=== PATIENT | male | born 1945 | race African-American/Black ===

== ENCOUNTER 2019-03-21 13:39 | Emergency (ER) | payer OTHER ==
--- NOTE | 2019-03-21 14:02 | ER Document Report ---
ED Medical Screen (RME) - General Chief Complaint: Urinary Problem Stated Complaint: BLOOD IN URINE Time Seen by Provider: 03/21/19 14:00 Primary Care Provider: ELMA BARBOUR MD [Primary Care Provider] - Follow up as needed Mode of Arrival: Ambulatory Information source: Patient Notes: 73-year-old male presented to ED for complaint of blood in his urine. He states it is very bloody urine. He states he did have a little bit of shocking pain on the way down here. When asked how much blood is in the urine he said is a lot of blood. He is alert oriented respirations regular nonlabored speaking in full sentences. Patient does not have any abdominal tenderness at this time. He states twice before long years ago he is passed blood but does not remember why he does not remember ever having a kidney stone. Does not have any flank pain at this time. He says he is in no pain at this moment. States he is not on any blood thinners I have greeted and performed a rapid initial assessment of this patient. A comprehensive ED assessment and evaluation of the patient, analysis of test results and completion of medical decision making process will be conducted by an additional ED providers. Physical Exam - Vital signs Vitals: Temp Pulse Resp BP Pulse Ox 98.4 F 82 18 134/74 H 97 03/21/19 13:56 03/21/19 13:56 03/21/19 13:56 03/21/19 13:56 03/21/19 13:56 Course - Vital Signs Vital signs: Temp Pulse Resp BP Pulse Ox 98.4 F 82 18 134/74 H 97 03/21/19 13:56 03/21/19 13:56 03/21/19 13:56 03/21/19 13:56 03/21/19 13:56 Doctor's Discharge - Discharge Referrals: ELMA BARBOUR MD [Primary Care Provider] - Follow up as needed
--- NOTE | 2019-03-21 15:29 | RADIOLOGY REPORT (SQ) ---
EXAM DESCRIPTION: CT ABD/PELVIS NO ORAL OR IV COMPLETED DATE/TIME: 03/21/2019 2:52 pm REASON FOR STUDY: hematuria COMPARISON: None. TECHNIQUE: CT scan of the abdomen and pelvis performed without intravenous or oral contrast. Images reviewed with lung, soft tissue, and bone windows. Reconstructed coronal and sagittal MPR images revi ewed. All images stored on PACS. All CT scanners at this facility use dose modulation, iterative reconstruction, and/or weight based d osing when appropriate to reduce radiation dose to as low as reasonably achievable (ALARA). [facility]: Dose Right [facility]: CareDose [facility]: Dose Right [facility]: Teradose 4D [facility]: [employer] RADIATION DOSE: CT Rad equipment meets quality standard of care and radiation dose reduction techniq ues were employed. CTDIvol: 9.5 mGy. DLP: 536 mGy-cm. LIMITATIONS: None. FINDINGS: LOWER CHEST: No acute findings. NON-CONTRASTED LIVER, SPLEEN, ADRENALS: Evaluation is limited due to the absence of intravenous contr ast. The relative hypoattenuation hepatic parenchyma suggestive of hepatic steatosis. The spleen is normal in size. There is no abnormality of the adrenal glands. PANCREAS: No acute abnormality of the pancreas. GALLBLADDER: No abnormality that is apparent on CT. RIGHT KIDNEY AND URETER: Evaluation is limited due to the absence of intravenous contrast. There is an exophytic multi-lobular water attenuation structure with a central calcification that measures 4.8 x 3.9 cm. There is no hydronephrosis, nephrolithiasis, hydroureter or ureterolithiasis. LEFT KIDNEY AND URETER: Evaluation is limited due to the absence of intra venous contrast. There is a 1.7 cm water attenuation cyst in the upper pole of the kidney. There is no hydronephrosis, nephrol ithiasis, hydroureter or ureterolithiasis. AORTA AND RETROPERITONEUM: No aneurysm of the abdominal aorta. No retroperitoneal adenopathy, hemorr georgiana or mass. BOWEL AND PERITONEAL CAVITY: Colonic diverticulosis without diverticulitis. There is no bowel obstru ction, bowel wall thickening or, or pericolonic/perienteric inflammation. The "fátima" appearance of the mesentery with scattered nonenlarged lymph nodes and punctate calcifications is nonspecific. The re is no free intraperitoneal fluid. APPENDIX: Normal. PELVIS, BLADDER, AND ABDOMINAL WALL:The urinary bladder is distended. There are fiducial markers candelario und the enlarged prostate gland. There is a fat containing right inguinal hernia. The left inguinal canal is patulous. The soft tissue density in the presacral space is nonspecific and could be relat ed to radiotherapy. BONES: No acute findings. OTHER: No other finding. IMPRESSION: 1. Complex multilobular cystic structure with a central calcification that arises from t he upper pole of the right kidney. Correlation with a nonemergent ultrasound or contrast enhanced CT /MRI is recommended. 2. Colonic diverticulosis without diverticulitis. 3. Fiducial markers are around the enlarged prostate gland. 4. Other findings as detailed above. COMMENT: Quality ID # [id number]: Final reports with documentation of one or more dose reduction techniques (e.g., Automated exposure control, adjustment of the mA and/or kV according to patient size, use of iterative reconstruction technique) TECHNICAL DOCUMENTATION: JOB ID: [id number] [employer]- All Rights Reserved Reading location - IP/workstation name: [email or web address]
[2019-03-21 15:50] LABS: APPEARANCE,URINE CLEAR; BILIRUBIN,URINE NEGATIVE (NEGATIVE); COLOR,URINE YELLOW; GLUCOSE, URINE NEGATIVE (NEGATIVE); KETONES,URINE NEGATIVE (NEGATIVE); PROTEIN,URINE 30 mg/dL (NEGATIVE); URINE SPECIFIC GRAVITY 1.009; UROBILINOGEN,URINE NEGATIVE mg/dL (<2.0)
[2019-03-21 16:17] LABS: ABSOLUTE BASOPHILS # (AUTO) 0.1 10^3/uL (0.0-0.2); ABSOLUTE EOSINOPHILS # (AUTO) 0.2 10^3/uL (0.0-0.6); ABSOLUTE MONOCYTES (AUTO) 0.3 10^3/uL (0.1-1.4); ABSOLUTE NEUT (AUTO) 3.7 10^3/uL (1.7-8.2); BASOPHILS % (AUTO) 1.1 % (0-2); EOSINOPHILS % (AUTO) 3.8 % (0-6); HEMATOCRIT 34.4 % (37.9-51.0); HEMOGLOBIN 11.6 g/dL (13.5-17.0); LYMPHOCYTES % (AUTO) 19.4 % (13-45); MEAN CORPUSCULAR HEMOGLOBIN 30.5 pg (27.0-33.4); MEAN CORPUSCULAR HGB CONC 33.7 g/dL (32.0-36.0); MEAN CORPUSCULAR VOLUME 91 fl (80-97); PLATELET COUNT 267 10^3/uL (150-450); RED CELL DISTRIBUTION WIDTH 14.1 % (11.5-14.0); SEGMENTED NEUTROPHILS % (AUTO) 70.7 % (42-78); TOTAL CELLS COUNTED % (AUTO) 100 %; WHITE BLOOD COUNT 5.3 10^3/uL (4.0-10.5)
[2019-03-21 16:48] LABS: ALBUMIN 4.2 g/dL (3.5-5.0); ALKALINE PHOSPHATASE 73 U/L (38-126); ANION GAP 9 (5-19); ASPARTATE AMINO TRANSFERASE 30 U/L (17-59); BILIRUBIN,DIRECT 0.1 mg/dL (0.0-0.4); BILIRUBIN,TOTAL 0.5 mg/dL (0.2-1.3); BLOOD UREA NITROGEN 16 mg/dL (7-20); CALCIUM 9.8 mg/dL (8.4-10.2); CARBON DIOXIDE 25 mmol/L (22-30); CHLORIDE 108 mmol/L (98-107); GLUCOSE 95 mg/dL (75-110); POTASSIUM 4.4 mmol/L (3.6-5.0); TOTAL PROTEIN 8.4 g/dL (6.3-8.2)
--- NOTE | 2019-03-21 18:31 | ER Document Report ---
ED General - General Chief Complaint: Urinary Problem Stated Complaint: BLOOD IN URINE Time Seen by Provider: 03/21/19 14:00 Primary Care Provider: ELMA BARBOUR MD [DENNY ELMORE] - Follow up as needed Mode of Arrival: Ambulatory Information source: Patient - HPI Notes: Patient presents complaint of blood in his urine. He also states he has some c entral lower abdominal pain. No significant burning with urination however. This started today. No known trauma. He states he does have a history of prostate cancer that is being managed with radiation. He states he also has a history of kidney cancer and at this time they are considering possibly using a "freezing therapy" but no decisions have been made yet. He states he has not had any treatment for the kidney cancer at this point. He states he is being followed at the [facility] for this cancer. He denies any vomiting or diarrhea. No fevers or chills. He states he has had some dizziness but this is not new as he has had a for several months. Nothing makes the blood in the urine better or worse. It is been intermittent. It is mild to moderate. He has had no problems with urinary retention or clots. He denies taking any blood thinners. - Related Data Allergies/Adverse Reactions: aspirin Allergy (Verified 03/21/19 14:03) prednisone Allergy (Verified 03/21/19 14:03) Past Medical History - General Information source: Patient - Social History Smoking Status: Former Smoker Frequency of alcohol use: None Drug Abuse: None Family History: Reviewed & Not Pertinent Patient has suicidal ideation: No Patient has homicidal ideation: No Pulmonary Medical History: Reports: Hx Asthma, Hx COPD Endocrine Medical History: Reports: Hx Diabetes Mellitus Type 2 - pre diabetic Review of Systems - Review of Systems Constitutional: denies: Chills, Fever Cardiovascular: denies: Chest pain, Palpitations Respiratory: denies: Cough, Short of breath -: Yes All other systems reviewed and negative Physical Exam - Vital signs Vitals: Temp Pulse Resp BP Pulse Ox 98.4 F 82 18 134/74 H 97 03/21/19 13:56 03/21/19 13:56 03/21/19 13:56 03/21/19 13:56 03/21/19 13:56 Interpretation: Normal - General General appearance: Appears well, Alert - HEENT Head: Normocephalic, Atraumatic Eyes: Normal Pupils: PERRL - Respiratory Respiratory status: No respiratory distress Chest status: Nontender Breath sounds: Normal Chest palpation: Normal - Cardiovascular Rhythm: Regular Heart sounds: Normal auscultation Murmur: No - Abdominal Inspection: Normal Distension: No distension Bowel sounds: Normal Tenderness: Tender - Mild suprapubic tenderness but no peritoneal signs. Organomegaly: No organomegaly - Back Back: Normal, Nontender - Extremities General upper extremity: Normal inspection, Nontender, Normal color, Normal ROM, Normal temperature General lower extremity: Normal inspection, Nontender, Normal color, Normal ROM, Normal temperature, Normal weight bearing. No: Shabnam's sign - Neurological Neuro grossly intact: Yes Cognition: Normal Orientation: AAOx4 [place] Coma Scale Eye Opening: Spontaneous [place] Coma Scale Verbal: Oriented [place] Coma Scale Motor: Obeys Commands [place] Coma Scale Total: 15 Speech: Normal Motor strength normal: LUE, RUE, LLE, RLE Sensory: Normal - Psychological Associated symptoms: Normal affect, Normal mood - Skin Skin Temperature: Warm Skin Moisture: Dry Skin Color: Normal Course - Re-evaluation Re-evalutation: 03/21/19 18:29 Patient presents with blood in the urine and some suprapubic tenderness. He does not have any evidence of infection. Vital signs are stable. CAT scan shows evidence of the known tumor. No other remarkable findings are on CT scan. I did call [facility] and speak to the urologist acetaldehyde converter operator. He recommended that no further treatment be performed at this time in the emergency department. He said patient should be discharged. He said patient should call [facility] in the morning and let them know that he is having blood in his urine. This was relayed to the patient. - Vital Signs Vital signs: Temp Pulse Resp BP Pulse Ox 98.4 F 82 18 134/74 H 97 03/21/19 13:56 03/21/19 13:56 03/21/19 13:56 03/21/19 13:56 03/21/19 13:56 - Laboratory Result Diagrams: 03/21/19 15:57 03/21/19 15:57 Laboratory results interpreted by me: 03/21/19 03/21/19 03/21/19 15:30 15:57 15:57 RBC 3.80 L Hgb 11.6 L Hct 34.4 L RDW 14.1 H Chloride 108 H Total Protein 8.4 H Urine Protein 30 H Urine Blood LARGE H - Diagnostic Test Radiology reviewed: Image reviewed, Reports reviewed Discharge - Discharge Clinical Impression: Hematuria Qualifiers: Hematuria type: gross Qualified Code(s): R31.0 - Gross hematuria Condition: Stable Disposition: HOME, SELF-CARE Instructions: Hematuria ([facility]) Additional Instructions: Please call the [facility] first thing in the morning. Please asked to speak to your urologist or the urologist acetaldehyde converter operator. Please let them know that you are having blood in your urine and had to be seen in the emergency department tonight. Referrals: ELMA BARBOUR MD [[facility]] - Follow up as needed
[2019-03-21 19:05] VITALS: BP 120/71
== END 2019-03-21 19:05 | disposition home or self-care (01) ==
LOC: ER 13:39
DX: R31.0 Gross hematuria (principal); R10.30 Lower abdominal pain, unspecified; C61 Malignant neoplasm of prostate; C79.00 Secondary malignant neoplasm of unspecified kidney and renal pelvis; Z88.6 Allergy status to analgesic agent
CPT/HCPCS: 36415; 74176; 80053; 81001; 85025; 99284